=== PATIENT | male | born 1990 | race African-American/Black ===

== ENCOUNTER 2017-12-22 23:39 | Emergency (ER) | payer SELFPAY ==
--- NOTE | 2017-12-23 00:40 | ER Document Report ---
ED Medical Screen (RME) - General Chief Complaint: Flu Symptoms Stated Complaint: FLU LIKE SYMPTOMS Time Seen by Provider: 12/23/17 00:38 Mode of Arrival: Ambulatory Information source: Patient Notes: Patient is a 27-year-old male who presents to the ER today for waking up this morning with sore throat, headache, body aches, chills, no appetite. Patient denies any vomiting but states "if I ate I think I would vomit." He denies any diarrhea. He denies any difficulty breathing. TRAVEL OUTSIDE OF THE [place] IN LAST 30 DAYS: No - Related Data Allergies/Adverse Reactions: No Known Allergies Allergy (Verified 05/08/16 15:30) Past Medical History - General Information source: Patient Past Surgical History: Reports: Hx Orthopedic Surgery - left wrist - Immunizations Hx Diphtheria, Pertussis, Tetanus Vaccination: Yes Review of Systems - Review of Systems Constitutional: See HPI EENT: See HPI Respiratory: See HPI Physical Exam - Vital signs Vitals: Temp Pulse Resp BP Pulse Ox 100.9 F H 74 18 155/65 H 98 12/23/17 00:23 12/23/17 00:12/23/17 00:12/23/17 00:12/23/17 00:23 - Notes Notes: PHYSICAL EXAMINATION: EYES: Pupils equal round and reactive to light, extraocular movements intact, sclera anicteric, conjunctiva are normal. ENT: ear canals without erythema or foreign body, TMs pearly khan with good bony landmarks, nares patent, oropharynx erythematous without exudates. Moist mucous membranes. LUNGS: CTAB and equal. No wheezes rales or rhonchi. HEART: Regular rate and rhythm without murmurs Course - Vital Signs Vital signs: Temp Pulse Resp BP Pulse Ox 100.9 F H 74 18 155/65 H 98 12/23/17 00:12/23/17 00:12/23/17 00:12/23/17 00:12/23/17 00:23
[2017-12-23 01:17] LABS: A TYPE INFLUENZA AG NEGATIVE (NEGATIVE); B INFLUENZA AG NEGATIVE (NEGATIVE)
[2017-12-23] MEDS ORDERED: IBUPROFEN 800 MG TABLET PO ONE (01:52)
[2017-12-23] MEDS ORDERED: ALBUTEROL SULFATE 0.083% NEB 2.5 MG/3 ML AMPUL NEB ONE (01:54)
[2017-12-23] MEDS ORDERED: ALBUTEROL SULFATE HFA (90 MCG/PUFF) 8 GM MDI (1 MDI/ER DISP) IH PRN (02:48)
--- NOTE | 2017-12-23 02:48 | ER Document Report ---
ED General - General Chief Complaint: Flu Symptoms Stated Complaint: FLU LIKE SYMPTOMS Time Seen by Provider: 12/23/17 00:38 Mode of Arrival: Ambulatory Information source: Patient Notes: Patient is a 27-year-old male who presents to the ER today for waking up this morning with sore throat, headache, body aches, chills, no appetite. Patient denies any vomiting but states "if I ate I think I would vomit." He denies any diarrhea. He denies any difficulty breathing. TRAVEL OUTSIDE OF THE [place] IN LAST 30 DAYS: No - Related Data Allergies/Adverse Reactions: No Known Allergies Allergy (Verified 05/08/16 15:30) Past Medical History - General Information source: Patient - Social History Smoking Status: Unknown if Ever Smoked Family History: Reviewed & Not Pertinent Patient has suicidal ideation: No Patient has homicidal ideation: No Renal/ Medical History: Denies: Hx Peritoneal Dialysis Past Surgical History: Reports: Hx Orthopedic Surgery - left wrist - Immunizations Hx Diphtheria, Pertussis, Tetanus Vaccination: Yes Physical Exam - Vital signs Vitals: Temp Pulse Resp BP Pulse Ox 100.9 F H 74 18 155/65 H 98 12/23/17 00:23 12/23/17 00:23 12/23/17 00:23 12/23/17 00:23 12/23/17 00:23 - Notes Notes: PHYSICAL EXAMINATION: GENERAL: Mildly ill-appearing, but with mucoid discharge in no acute distress. HEAD: Atraumatic, normocephalic. EYES: Pupils equal round and reactive to light, extraocular movements intact, sclera anicteric, conjunctiva are normal. ENT: ear canals without erythema or foreign body, TMs pearly khan with good bony landmarks, nares patent, oropharynx clear without exudates. Moist mucous membranes. NECK: Normal range of motion, supple without lymphadenopathy LUNGS: Cough, otherwise CTAB and equal. No wheezes rales or rhonchi. HEART: Regular rate and rhythm without murmurs ABDOMEN: Soft, no tenderness. No guarding, no rebound BACK: no vertebral tenderness, normal ROM GI/: no CVA tenderness EXTREMITIES: Normal range of motion, no pitting edema. No cyanosis. NEUROLOGICAL: Cranial nerves grossly intact. Normal sensory/motor exams. PSYCH: Normal mood, normal affect. SKIN: Warm, Dry, normal turgor, no rashes or lesions noted Course - Re-evaluation Re-evalutation: 12/23/17 05:42 Flu and strep negative today. Patient feels better after breathing treatment and Motrin. Fever did reduce. - Vital Signs Vital signs: Temp Pulse Resp BP Pulse Ox 99.4 F 72 12 130/57 H 95 12/23/17 02:52 12/23/17 02:52 12/23/17 02:52 12/23/17 02:52 12/23/17 02:52 Discharge - Discharge Clinical Impression: Viral syndrome, Cough, Body aches Headache Qualifiers: Headache type: unspecified Headache chronicity pattern: acute headache Intractability: not intractable Qualified Code(s): R51 - Headache Condition: Stable Disposition: HOME, SELF-CARE Additional Instructions: Return immediately for any new or worsening symptoms. Follow up with primary care provider, call tomorrow to make followup appointment. Prescriptions: Hydrocodone Bit/Homatropine [Hycodan Syrup 5-1.5 mg/5 ml Ud Cup] 5 ml PO Q4HP PRN #120 ml PRN Reason: Ibuprofen [Motrin 800 mg Tablet] 800 mg PO Q8H PRN #30 tab PRN Reason: Forms: Return to Work
[2017-12-23 02:53] VITALS: BP 130/57
== END 2017-12-23 03:15 | disposition home or self-care (01) ==
LOC: ER 23:39
DX: B34.9 Viral infection, unspecified (principal); R05 Cough; M79.1 Myalgia; R51 Headache; J02.9 Acute pharyngitis, unspecified
CPT/HCPCS: 94640; 99283; 87070; 87880; 87804; J3490

== ENCOUNTER 2018-11-12 17:42 | Emergency (ER) | payer OTHER ==
--- NOTE | 2018-11-12 17:56 | ER Document Report ---
ED Medical Screen (RME) - General Chief Complaint: Facial Swelling Stated Complaint: FACIAL SWELLING Time Seen by Provider: 11/12/18 17:55 Mode of Arrival: Ambulatory Information source: Patient TRAVEL OUTSIDE OF THE [place] IN LAST 30 DAYS: No - HPI Patient complains to provider of: facial swelling Onset: Yesterday - pt with c/o 2 day h/o painful mass in L cheek area - Related Data Allergies/Adverse Reactions: No Known Allergies Allergy (Verified 05/08/16 15:30) Past Medical History Renal/ Medical History: Denies: Hx Peritoneal Dialysis Past Surgical History: Reports: Hx Orthopedic Surgery - left wrist - Immunizations Hx Diphtheria, Pertussis, Tetanus Vaccination: Yes
[2018-11-12 18:20] LABS: ABSOLUTE EOSINOPHILS # (AUTO) 0.2 10^3/uL (0.0-0.6); ABSOLUTE LYMPHOCYTES (AUTO) 1.3 10^3/uL (0.5-4.7); ABSOLUTE MONOCYTES (AUTO) 0.5 10^3/uL (0.1-1.4); ABSOLUTE NEUT (AUTO) 4.2 10^3/uL (1.7-8.2); BASOPHILS % (AUTO) 0.3 % (0-2); EOSINOPHILS % (AUTO) 3.3 % (0-6); HEMOGLOBIN 14.7 g/dL (13.5-17.0); LYMPHOCYTES % (AUTO) 20.8 % (13-45); MEAN CORPUSCULAR HEMOGLOBIN 30.4 pg (27.0-33.4); MEAN CORPUSCULAR HGB CONC 34.3 g/dL (32.0-36.0); MEAN CORPUSCULAR VOLUME 89 fl (80-97); MONOCYTES % (AUTO) 8.4 % (3-13); PLATELET COUNT 194 10^3/uL (150-450); RED BLOOD COUNT 4.84 10^6/uL (4.35-5.55); RED CELL DISTRIBUTION WIDTH 13.5 % (11.5-14.0); SEGMENTED NEUTROPHILS % (AUTO) 67.2 % (42-78); TOTAL CELLS COUNTED % (AUTO) 100 %; WHITE BLOOD COUNT 6.3 10^3/uL (4.0-10.5)
[2018-11-12 18:36] LABS: ALANINE AMINOTRANSFERASE 15 U/L (21-72); ALBUMIN 4.3 g/dL (3.5-5.0); ALKALINE PHOSPHATASE 73 U/L (38-126); ANION GAP 9 (5-19); ASPARTATE AMINO TRANSFERASE 13 U/L (17-59); BILIRUBIN,DIRECT 0.2 mg/dL (0.0-0.4); BILIRUBIN,TOTAL 0.6 mg/dL (0.2-1.3); BLOOD UREA NITROGEN 13 mg/dL (7-20); CALCIUM 9.4 mg/dL (8.4-10.2); CARBON DIOXIDE 29 mmol/L (22-30); CHLORIDE 102 mmol/L (98-107); GLUCOSE 90 mg/dL (75-110); TOTAL PROTEIN 7.2 g/dL (6.3-8.2)
--- NOTE | 2018-11-12 18:41 | RADIOLOGY REPORT (SQ) ---
EXAM DESCRIPTION: CT FACIAL AREA WITH COMPLETED DATE/TIME: 11/12/2018 6:23 pm REASON FOR STUDY: mass L cheek COMPARISON: None. TECHNIQUE: Post contrast images through the facial bones and orbits windowed for bone and soft tissu e. Additional coronal and sagittal reconstructed images reviewed. All images stored on PACS. All CT scanners at this facility use dose modulation, iterative reconstruction, and/or weight based d osing when appropriate to reduce radiation dose to as low as reasonably achievable (ALARA). [facility]: Dose Right [facility]: CareDose [facility]: Dose Right [facility]: Teradose 4D [facility]: [facility] CONTRAST TYPE AND DOSE: contrast/concentration: Isovue 350.00 mg/ml; Total Contrast Delivered: 50.0 ml; Total Saline Delivered: 50.0 ml RENAL FUNCTION: None required. The patient is less than 50 years old. RADIATION DOSE: CT Rad equipment meets quality standard of care and radiation dose reduction techniq ues were employed. CTDIvol: 30.4 mGy. DLP: 602 mGy-cm. . LIMITATIONS: None. FINDINGS: FACIAL BONES: No fracture or bone lesion. ORBITS: Intact. No fracture. Symmetric intact globes and retroorbital soft tissues. PARANASAL SINUSES: Mild soft tissue thickening of the inferior left maxillary sinus. No nasal polyps . Maxillary sinus outlets are patent. SOFT TISSUES: There is a small heterogeneous low attenuation collection overlying the alveolar ridge of the left maxilla measuring 1.9 x 0.9 cm with overlying soft tissue stranding (series 3, image 34). There is adjacent periapical lucency and erosion of the maxilla about the roots of the left 1st mol ar. INFERIOR BRAIN: Limited view. No acute findings. OTHER: No other significant finding. IMPRESSION: There is a small heterogeneous low attenuation collection overlying the alveolar ridge o f the left maxilla measuring 1.9 cm, with overlying soft tissue stranding. There is adjacent periapi manpreet lucency and erosion of the maxilla about the roots of the upper left 1st molar, findings overall most consistent with periapical abscess. Correlate with clinical signs and symptoms. TECHNICAL DOCUMENTATION: JOB ID: [id number] Quality ID # [id number]: Final reports with documentation of one or more dose reduction techniques (e.g., Au tomated exposure control, adjustment of the mA and/or kV according to patient size, use of iterative reconstruction technique) 2010 [employer] [facility] [employer]- All Rights Reserved Reading location - IP/workstation name: [email or web address]
[2018-11-12] MEDS ORDERED: DEXAMETHASONE SOD PHOS INJ 10 MG/1 ML VIAL IV ONE (19:25)
[2018-11-12] MEDS ORDERED: CLINDAMYCIN 600 MG/D5W RTU 600 MG/50 ML RTUPB IV ONE (19:25)
[2018-11-12] MEDS ORDERED: MORPHINE SULFATE 10 MG/ML INJ IV ONE ×2 (20:49→22:31)
[2018-11-12] MEDS ORDERED: ONDANSETRON HCL INJ/PF 4 MG/2 ML SDV IV ONE ×2 (20:49→22:31)
[2018-11-12] MEDS ORDERED: NORMAL SALINE 1000 ML 1,000 ML IV ONE (22:31)
--- NOTE | 2018-11-12 22:35 | ER Document Report ---
ED General - General Chief Complaint: Facial Swelling Stated Complaint: FACIAL SWELLING Time Seen by Provider: 11/12/18 17:55 Mode of Arrival: Ambulatory TRAVEL OUTSIDE OF THE [place] IN LAST 30 DAYS: No - HPI Patient complains to provider of: Left facial swelling Notes: Patient coming in for evaluation of left facial swelling. Patient states ongoing for the last 2 days. Patient denies any fever chills nausea vomiting diarrhea denies any past medical history is does states that he smokes cigarettes and marijuana. Patient denies any specific dental pain. Patient otherwise states no difficulty breathing eating or drinking tolerate his oral secretions no pain no pain in his mouth - Related Data Allergies/Adverse Reactions: No Known Allergies Allergy (Verified 05/08/16 15:30) Past Medical History - General Information source: Patient - Social History Smoking Status: Current Every Day Smoker Frequency of alcohol use: Pt states 2-3 nights a week Drug Abuse: Marijuana Family History: Reviewed & Not Pertinent Patient has suicidal ideation: No Patient has homicidal ideation: No Renal/ Medical History: Denies: Hx Peritoneal Dialysis Past Surgical History: Reports: Hx Orthopedic Surgery - left wrist - Immunizations Hx Diphtheria, Pertussis, Tetanus Vaccination: Yes Review of Systems - Review of Systems Constitutional: No symptoms reported EENT: Other - Face swelling Cardiovascular: No symptoms reported Respiratory: No symptoms reported Gastrointestinal: No symptoms reported Genitourinary: No symptoms reported Male Genitourinary: No symptoms reported Musculoskeletal: No symptoms reported Skin: No symptoms reported Hematologic/Lymphatic: No symptoms reported Neurological/Psychological: No symptoms reported -: Yes All other systems reviewed and negative Physical Exam - Vital signs Vitals: Temp Pulse Resp BP Pulse Ox 98.5 F 50 L 18 136/66 H 99 11/12/18 17:51 11/12/18 17:51 11/12/18 17:51 11/12/18 17:51 11/12/18 17:51 Interpretation: Normal - General General appearance: Appears well, Alert - HEENT Head: Normocephalic, Atraumatic Eyes: Normal Conjunctiva: Normal Cornea: Normal Pupils: PERRL Ears: Normal External canal: Normal Tympanic membrane: Normal Neck: Normal Notes: Examination patient shows obvious swelling to the left side of face tenderness to palpation underneath the zygomatic arch. Examination of the patient's oral medications not revealing critical pathology. Patient does have dental fillings in the upper left molars however there is no pain to percussion there is no signs of open dental fracture or "cavity that would impinge itself to a source of infection patient does have some induration of the left buccal mucosa is felt on examination no signs of fluctuance - Respiratory Respiratory status: No respiratory distress Chest status: Nontender Breath sounds: Normal Chest palpation: Normal - Cardiovascular Rhythm: Regular Heart sounds: Normal auscultation Murmur: No - Abdominal Inspection: Normal Distension: No distension Bowel sounds: Normal Tenderness: Nontender Organomegaly: No organomegaly - Back Back: Normal, Nontender - Extremities General upper extremity: Normal inspection, Nontender, Normal color, Normal ROM, Normal temperature General lower extremity: Normal inspection, Nontender, Normal color, Normal ROM, Normal temperature, Normal weight bearing. No: Anel's sign - Neurological Neuro grossly intact: Yes Cognition: Normal Orientation: AAOx4 [place] Coma Scale Eye Opening: Spontaneous Jaime Coma Scale Verbal: Oriented Jaime Coma Scale Motor: Obeys Commands [place] Coma Scale Total: 15 Speech: Normal Motor strength normal: LUE, RUE, LLE, RLE Sensory: Normal - Psychological Associated symptoms: Normal affect, Normal mood - Skin Skin Temperature: Warm Skin Moisture: Dry Skin Color: Normal Course - Re-evaluation Re-evalutation: 11/12/18 22:34 Concern for facial dental abscess approximately 1.9 x [address] scan. Patient was given a dose of Decadron to aid with the swelling also started on clindamycin. Virtually at this time we do not have any oral surgery or ENT therefore I did contact the hospital in [place] this discussed the case with the hospitalist resident who accepted the patient in transfer on behalf of Dr. Jamison attending. Patient otherwise has remained stable with no signs of any any airway compromise patient will be continuously monitored until his transfer. - Vital Signs Vital signs: Temp Pulse Resp BP Pulse Ox 98.5 F 50 L 18 136/66 H 99 11/12/18 17:51 11/12/18 17:51 11/12/18 17:51 11/12/18 17:51 11/12/18 17:51 - Laboratory Result Diagrams: 11/12/18 18:03 11/12/18 18:03 Laboratory results interpreted by me: 11/12/18 18:03 AST 13 L ALT 15 L Discharge - Discharge Clinical Impression: Dental abscess, Facial abscess Condition: Good Disposition: [facility]
[2018-11-12 22:53] VITALS: BP 147/81
== END 2018-11-12 22:55 | disposition short-term general hospital (02) ==
LOC: ER 17:42
DX: K04.7 Periapical abscess without sinus (principal); R22.0 Localized swelling, mass and lump, head; F17.210 Nicotine dependence, cigarettes, uncomplicated; F12.10 Cannabis abuse, uncomplicated
CPT/HCPCS: 36415; 87040; 85025; 80053; 70487; J2270; J2405; J1100; 96365; 96375; 96376; 99285

== ENCOUNTER 2019-02-12 20:04 | Emergency (ER) | payer OTHER ==
[2019-02-12 20:15] VITALS: BP 159/76
[2019-02-12 23:21] LABS: APPEARANCE,URINE SLIGHTLY-CLOUDY; BILIRUBIN,URINE NEGATIVE (NEGATIVE); COLOR,URINE YELLOW; GLUCOSE, URINE NEGATIVE (NEGATIVE); KETONES,URINE TRACE mg/dL (NEGATIVE); LEUKOCYTE ESTERASE,URINE NEGATIVE (NEGATIVE); NITRITE,URINE NEGATIVE (NEGATIVE); PROTEIN,URINE 30 mg/dL (NEGATIVE); URINE SPECIFIC GRAVITY 1.023; UROBILINOGEN,URINE NEGATIVE mg/dL (<2.0)
[2019-02-13 00:40] LABS: CHLAM PCR NOT DETECTED (NOT DETECT); GON PCR NOT DETECTED (NOT DETECT)
[2019-02-13] MEDS ORDERED: CEFTRIAXONE INJ 250 MG VIAL IM ONE (00:48)
[2019-02-13] MEDS ORDERED: AZITHROMYCIN 250 MG TABLET PO ONE (00:49)
--- NOTE | 2019-02-13 00:52 | ER Document Report ---
HPI - HPI Patient complains to provider of: STD check Time Seen by Provider: 02/12/19 23:01 Pain Level: Denies Context: 21-year-old male presents for STD check. He states his partner was recently diagnosed with chlamydia and he states she was treated. She actually brought him to the emergency department this evening. He has no urinary complaints. No abnormal discharge. No pain with urination. No testicular pain. He is requesting empiric treatment. - CONSTITUTIONAL Constitutional: DENIES: Fever, Chills - EENT EENT: DENIES: Sore Throat, Ear Pain, Eye problems - NEURO Neurology: DENIES: Headache, Weakness, Vision blurred, Dizzinesss / Vertigo - CARDIOVASCULAR Cardiovascular: DENIES: Chest pain - RESPIRATORY Respiratory: DENIES: Trouble Breathing, Coughing - GASTROINTESTINAL Gastrointestinal: DENIES: Abdominal Pain, Black / Bloody Stools - URINARY Urinary: REPORTS: Dysuria. DENIES: Urgency, Frequency - MUSCULOSKELETAL Musculoskeletal: DENIES: Extremity pain Past Medical History - Social History Smoking Status: Unknown if Ever Smoked Family History: Reviewed & Not Pertinent Patient has suicidal ideation: No Patient has homicidal ideation: No Renal/ Medical History: Denies: Hx Peritoneal Dialysis Past Surgical History: Reports: Hx Orthopedic Surgery - left wrist - Immunizations Hx Diphtheria, Pertussis, Tetanus Vaccination: Yes Vertical Provider Document - CONSTITUTIONAL Exam Limitations: No Limitations - INFECTION CONTROL TRAVEL OUTSIDE OF THE [place] IN LAST 30 DAYS: No - HEENT HEENT: Atraumatic, Normocephalic - NECK Neck: Normal Inspection - RESPIRATORY Respiratory: No Respiratory Distress Course - Re-evaluation Re-evalutation: 02/13/19 00:50 Patient with recent sexual partner diagnosed for chlamydia. He states she was treated. He is requesting empiric treatment for GC chlamydia. Urine studies are still pending but we will treat him. - Vital Signs Vital signs: Temp Pulse Resp BP Pulse Ox 98.4 F 41 L 16 159/76 H 98 02/12/19 20:13 02/12/19 20:13 02/12/19 20:13 02/12/19 20:13 02/12/19 20:13 - Laboratory Laboratory results interpreted by me: 02/12/19 22:55 Urine Protein 30 H Urine Ketones TRACE H Urine Blood LARGE H Discharge - Discharge Clinical Impression: STD exposure Condition: Good Disposition: HOME, SELF-CARE Additional Instructions: You were seen in the emergency department this evening for STD exposure. You were treated for gonorrhea and chlamydia. If the results are positive you will still get a call from the culture nurse tomorrow but you have already been treated so you do not need to take any further action. Please confirm that your partner was treated or you are at risk of being reexposed. If you have severe burning while urinating. Severe testicular pain. Redness or irritation of the penis. Please return for reevaluation.
== END 2019-02-13 01:10 | disposition home or self-care (01) ==
LOC: ER 20:04
DX: Z20.2 Contact with and (suspected) exposure to infections with a predominantly sexual mode of transmission (principal)
CPT/HCPCS: 99283; 96372; 81001; 87491; 87591; J0696

== ENCOUNTER 2020-05-17 17:32 | Emergency (ER) | payer SELFPAY ==
--- NOTE | 2020-05-17 18:38 | ER Document Report ---
ED Medical Screen (RME) - General Chief Complaint: Abscess Stated Complaint: POSSIBLE ABSCESS Time Seen by Provider: 05/17/20 18:33 Notes: Patient is a 30-year-old male who presents emergency department with a chief complaint of a possible abscess to his perineum area. Patient states that he noticed that the area was getting more tender over the last 2 days. Patient states that he has history of these in the past. Denies any fever, body aches, or chills. Exam: GEE Ortiz at bedside. Fluctuance noted to perineal area. I have greeted and performed a rapid initial assessment of this patient. A comprehensive ED assessment and evaluation of the patient, analysis of test results and completion of medical decision making process will be conducted by an additional ED providers. TRAVEL OUTSIDE OF THE [place] IN LAST 30 DAYS: No - Related Data Allergies/Adverse Reactions: No Known Allergies Allergy (Verified 05/17/20 18:33) Past Medical History Renal/ Medical History: Denies: Hx Peritoneal Dialysis Past Surgical History: Reports: Hx Orthopedic Surgery - left wrist - Immunizations Hx Diphtheria, Pertussis, Tetanus Vaccination: Yes Physical Exam - Vital signs Vitals: Temp Pulse Resp BP Pulse Ox 99.4 F 62 16 155/77 H 97 05/17/20 17:56 05/17/20 17:56 05/17/20 17:56 05/17/20 17:56 05/17/20 17:56 Course - Vital Signs Vital signs: Temp Pulse Resp BP Pulse Ox 99.4 F 62 16 155/77 H 97 05/17/20 17:56 05/17/20 17:56 05/17/20 17:56 05/17/20 17:56 05/17/20 17:56
--- NOTE | 2020-05-17 20:02 | RADIOLOGY REPORT (SQ) ---
EXAM DESCRIPTION: U/S SCROTUM W/O DOPPLER IMAGES COMPLETED DATE/TIME: 05/17/2020 6:31 pm REASON FOR STUDY: possible abscess to perineum. COMPARISON: None. TECHNIQUE: Dynamic and static grayscale images acquired of the localized site of clinical concern an d recorded on PACS. Additional selected color Doppler and spectral images recorded. SITE OF CONCERN: Perineum LIMITATIONS: None. FINDINGS: SUBCUTANEOUS TISSUES: There is a complex fluid collection in the subcutaneous soft tissues measuring 2.9 x 1 x 2.1 cm. This demonstrates intra echogenicity with no internal vascularity, prob ably representing an abscess. There is surrounding edema and overlying skin thickening. VASCULAR: No increased or decreased vascularity. No occlusions. OTHER: No other significant finding. IMPRESSION: Complex fluid collection in the perineum probably a perineal abscess. Associated edema and skin thickening. TECHNICAL DOCUMENTATION: JOB ID: [id number] 2010 [employer]- All Rights Reserved Reading location - IP/workstation name: [email or web address]
[2020-05-17 22:28] VITALS: BP 142/69
== END 2020-05-18 00:48 | disposition left against medical advice (07) ==
LOC: ER 17:32
DX: L02.215 Cutaneous abscess of perineum (principal); F17.200 Nicotine dependence, unspecified, uncomplicated; F12.10 Cannabis abuse, uncomplicated
CPT/HCPCS: 76870; 99281

== ENCOUNTER 2020-05-18 12:16 | Emergency (ER) | payer SELFPAY ==
[2020-05-18] MEDS ORDERED: OXYCODONE-ACETAMINOPHEN 5-325 MG TABLET PO ONE (13:18)
--- NOTE | 2020-05-18 13:19 | ER Document Report ---
ED Medical Screen (RME) - General Chief Complaint: Abscess Stated Complaint: ABSCESS Time Seen by Provider: 05/18/20 13:14 Mode of Arrival: Ambulatory Information source: Patient Notes: Patient with a perineal abscess, patient was seen here yesterday and had an ultrasound that confirmed the abscess. Patient states that area has gradually started to worsen and increase in size. Patient denies any fever. Patient denies any history of diabetes. I have greeted and performed a rapid initial assessment of this patient. A comprehensive ED assessment and evaluation of the patient, analysis of test results and completion of the medical decision making process will be conducted by additional ED providers. TRAVEL OUTSIDE OF THE [place] IN LAST 30 DAYS: No - Related Data Allergies/Adverse Reactions: No Known Allergies Allergy (Verified 05/18/20 13:13) Past Medical History - Social History Frequency of alcohol use: Daily - 2-3 beers Drug Abuse: Marijuana Renal/ Medical History: Denies: Hx Peritoneal Dialysis Past Surgical History: Reports: Hx Orthopedic Surgery - left wrist - Immunizations Hx Diphtheria, Pertussis, Tetanus Vaccination: Yes Physical Exam - Vital signs Vitals: Temp Pulse Resp BP Pulse Ox 99.2 F 42 L 14 145/80 H 98 05/18/20 12:48 05/18/20 12:48 05/18/20 12:48 05/18/20 12:48 05/18/20 12:48 - Skin Skin irregularity: Abscess - To perineal raphe Course - Vital Signs Vital signs: Temp Pulse Resp BP Pulse Ox 99.2 F 42 L 14 145/80 H 98 05/18/20 13:13 05/18/20 12:48 05/18/20 12:48 05/18/20 12:48 05/18/20 12:48
[2020-05-18 14:05] LABS: ABSOLUTE EOSINOPHILS # (AUTO) 0.1 10^3/uL (0.0-0.6); ABSOLUTE LYMPHOCYTES (AUTO) 1.6 10^3/uL (0.5-4.7); ABSOLUTE MONOCYTES (AUTO) 0.9 10^3/uL (0.1-1.4); ABSOLUTE NEUT (AUTO) 8.2 10^3/uL (1.7-8.2); BASOPHILS % (AUTO) 0.3 % (0-2); EOSINOPHILS % (AUTO) 0.9 % (0-6); HEMATOCRIT 43.8 % (37.9-51.0); HEMOGLOBIN 15.6 g/dL (13.5-17.0); LYMPHOCYTES % (AUTO) 14.8 % (13-45); MEAN CORPUSCULAR HGB CONC 35.7 g/dL (32.0-36.0); MEAN CORPUSCULAR VOLUME 90 fl (80-97); MONOCYTES % (AUTO) 8.5 % (3-13); PLATELET COUNT 178 10^3/uL (150-450); RED BLOOD COUNT 4.89 10^6/uL (4.35-5.55); RED CELL DISTRIBUTION WIDTH 14.4 % (11.5-14.0); SEGMENTED NEUTROPHILS % (AUTO) 75.5 % (42-78); TOTAL CELLS COUNTED % (AUTO) 100 %; WHITE BLOOD COUNT 10.9 10^3/uL (4.0-10.5)
[2020-05-18 14:28] LABS: ALBUMIN 4.7 g/dL (3.5-5.0); ALKALINE PHOSPHATASE 77 U/L (38-126); ANION GAP 9 (5-19); ASPARTATE AMINO TRANSFERASE 17 U/L (17-59); BILIRUBIN,TOTAL 1.1 mg/dL (0.2-1.3); BLOOD UREA NITROGEN 14 mg/dL (7-20); CALCIUM 9.5 mg/dL (8.4-10.2); CARBON DIOXIDE 27 mmol/L (22-30); CHLORIDE 101 mmol/L (98-107); GLUCOSE 94 mg/dL (75-110); POTASSIUM 3.6 mmol/L (3.6-5.0)
[2020-05-18] MEDS ORDERED: LIDOCAINE 1% INJ-PF (10 MG/ML) 30 ML SDV INJ ONE (16:23)
[2020-05-18] MEDS ORDERED: LIDOCAINE 2%/EPINEPHRINE INJ 20 ML VIAL INJ ONE (16:23)
[2020-05-18] MEDS ORDERED: ONDANSETRON HCL INJ/PF 4 MG/2 ML SDV IV ONE (16:23)
[2020-05-18] MEDS ORDERED: NORMAL SALINE 1000 ML 1,000 ML IV ONE (16:23)
[2020-05-18] MEDS ORDERED: CLINDAMYCIN 900 MG/D5W RTU 900 MG/50 ML RTUPB IV ONE (16:23)
[2020-05-18] MEDS ORDERED: HYDROMORPHONE HCL INJ/PF 2 MG/ML AMPULE IV ONE (16:23)
--- NOTE | 2020-05-18 17:41 | ER Document Report ---
ED General - General Chief Complaint: Abscess Stated Complaint: ABSCESS Time Seen by Provider: 05/18/20 13:14 Mode of Arrival: Ambulatory Notes: Patient is a 30-year-old -[place] male with a past medical history of abscess formations in the past who presents to the emergency department the chief complaint of the same. He reports he was here yesterday and had an ultrasound ordered in triage of the perineal abscess confirming the collection of fluid. He states that he had to leave yesterday and could not wait for definitive treatment. He returned today complaints of worsening. States when he gets these they are usually in a similar area near the genitals and that they usually come to a "head" that he pops them himself and then they resolve. He states this time nothing is working and has not coming to ahead. He states he sat in warm baths and held a hot rag to the area without any improvement or drainage. He admits to only pain. Denies any extension into the scrotum itself. Denies any testicular pain or swelling. Denies any pain with bowel movements or wiping after bowel movements. Denies any blood per rectum. Denies any difficulty with urination or penile pain. He denies any fevers chills or night sweats. No nausea or vomiting or diarrhea. TRAVEL OUTSIDE OF THE [place] IN LAST 30 DAYS: No - Related Data Allergies/Adverse Reactions: No Known Allergies Allergy (Verified 05/18/20 13:13) Past Medical History - General Information source: Patient - Social History Smoking Status: Current Every Day Smoker Frequency of alcohol use: Daily - 2-3 beers Drug Abuse: Marijuana Family History: Reviewed & Not Pertinent Patient has homicidal ideation: No Renal/ Medical History: Denies: Hx Peritoneal Dialysis Past Surgical History: Reports: Hx Orthopedic Surgery - left wrist - Immunizations Hx Diphtheria, Pertussis, Tetanus Vaccination: Yes Review of Systems - Review of Systems Notes: As per HPI otherwise negative Physical Exam - Vital signs Vitals: Temp Pulse Resp BP Pulse Ox 99.2 F 42 L 14 145/80 H 98 05/18/20 12:48 05/18/20 12:48 05/18/20 12:48 05/18/20 12:48 05/18/20 12:48 - General General appearance: Appears well, Alert In distress: None - Respiratory Respiratory status: No respiratory distress Chest status: Nontender Breath sounds: Normal Chest palpation: Normal - Cardiovascular Rhythm: Regular Heart sounds: Normal auscultation - Genitourinary Inspection: Other - Perineal abscess formation with induration and fluctuance localized to the central perineum. No extension into the scrotum or tracking to the anus. The area affected is tender. There is no drainage. No expanding cellulitis or proximal streaking. Cremasteric reflex: Normal Scrotum: Normal. No: Swelling, Redness, Hot to touch Notes: Chaperoned by nurse - Neurological Neuro grossly intact: Yes Cognition: Normal Orientation: AAOx4 - Psychological Associated symptoms: Normal affect, Normal mood - Skin Skin Color: Other - Normal except area described above Course - Re-evaluation Re-evalutation: 05/18/20 18:53 Patient tolerated procedure well. He is received all the medications and reevaluation of him at this point, he is doing well. Has some mild complaints of pain but otherwise no abnormalities or adverse reactions. He will return in 2 days for packing removal and reevaluation. Was given his first dose of clindamycin IV here. Will be sent home with a to go pack of [place] as the pharmacies in the area are closed, prescription to fill tomorrow for the remainder of the week if needed. Counseled him at length regarding the importance of packing removal and wound recheck in 2 days and advised to return here or any ER immediately with any new, persistent or worsening symptoms. He verbalized understood and agreed. - Vital Signs Vital signs: Temp Pulse Resp BP Pulse Ox 98.3 F 44 L 16 146/78 H 98 05/18/20 18:50 05/18/20 18:50 05/18/20 18:50 05/18/20 18:50 05/18/20 18:50 - Laboratory Result Diagrams: 05/18/20 13:45 05/18/20 13:45 Laboratory results interpreted by me: 05/18/20 05/18/20 13:45 13:45 WBC 10.9 H RDW 14.4 H Sodium 136.7 L Procedures - Incision and Drainage Mid- Time completed: 17:40 - Peroneal Type: Complex Anesthetic type: 1% Lidocaine mL's of anesthetic: 5 Blade size: 11 I&D procedure: Chlorprep applied, Iodoform packing placed Incision Method: Incision made by scalpel Amount/type of drainage: Moderate amount of purulent drainage mixed with blood Notes: 05/18/20 17:41 Patient tolerated well Discharge - Discharge Clinical Impression: Perineal abscess Condition: Stable Disposition: HOME, SELF-CARE Instructions: Post Incision and Drainage, Oral Narcotic Medication ([facility]) Additional Instructions: Please return here in 2 days for packing removal and wound recheck. Return here or any ER immediately with any new, persistent or worsening symptoms. Prescriptions: Clindamycin HCl 300 mg PO Q6 #40 capsule Hydrocodone/Acetaminophen [[place] 5-325 mg Tablet] 1 tab PO Q6 PRN #12 tablet PRN Reason:
[2020-05-18 18:53] VITALS: BP 146/78
[2020-05-18] MEDS ORDERED: HYDROCODONE/ACETAMINOPHEN 5-325 MG (6 TAB/ER DISP) PO PRN (18:57)
== END 2020-05-18 19:12 | disposition home or self-care (01) ==
LOC: ER 12:16
PROC: 0H99XZZ Drainage of Perineum Skin, External Approach (ICD-10-PCS; principal; 2020-05-18)
DX: L02.215 Cutaneous abscess of perineum (principal); F17.200 Nicotine dependence, unspecified, uncomplicated
CPT/HCPCS: 99283; 96375; 96365; 36415; 87040; 85025; 80053; 10060; J3490 ×2; J1170; J2405; J7030